=== PATIENT | female | born 1965 | race Caucasian/White ===

== ENCOUNTER → 2023-10-01 10:08 | Outpatient (REF) | payer OTHER, SELFPAY | LOC: RAD 10:08 | PROVIDERS: ATTENDING PHYSICIAN Internal Medicine | DX: E04.2 Nontoxic multinodular goiter (principal) | CPT/HCPCS: 76536 ==

== ENCOUNTER 2023-11-29 10:52 | Emergency (ER) | payer OTHER, SELFPAY ==
[2023-11-29] VITALS (7 sets, daily range): BP systolic 103–135; BP diastolic 73–81
[2023-11-29 11:21] LABS: ALT (SGPT) 28 U/L (0-35); AST (SGOT) 28 U/L (14-36); Alkaline Phosphatase 53 U/L (38-126); Blood Urea Nitrogen 18 mg/dl (7-17); Calcium 9.7 mg/dl (8.4-10.2); Carbon Dioxide 26 mmol/L (22-30); Chloride 105 mmol/L (98-107); Glucose 108 mg/dl (70-99); Potassium 4.1 mmol/L (3.5-5.1); Sodium 138 mmol/L (135-145); Total Bilirubin 0.8 mg/dl (0.2-1.3); Total Protein 6.6 g/dl (6.3-8.2); eGFR > 60.00
[2023-11-29 11:23] LABS: % Basophils 0.5 % (0-2); % Eosinophils 2.9 % (0-6); % Immature Granulocytes 0.2 % (0-0.5); % Lymphocytes 26.6 % (20.5-51.1); % Monocytes 7.5 % (1.7-9.3); % Neutrophils 62.3 % (42.2-75.2); Absolute Eosinophils 0.2 10^3/uL (0-0.7); Absolute Lymphocytes 1.7 10^3/uL (1.2-3.4); Absolute Monocytes 0.5 10^3/uL (0.1-0.6); Absolute Neutrophils 3.9 10^3/uL (1.4-6.5); Hematocrit 39.2 % (37.0-47.0); Hemoglobin 13.2 g/dL (12.0-16.0); Mean Corp Hgb Conc. 33.7 g/dL (33.0-37.0); Mean Corpuscular Hgb 30.4 pg (27.0-31.0); Mean Corpuscular Volume 90.3 fL (81.0-99.0); Mean Platelet Volume 10.8 fL (7.4-10.4); Nucleated Red Blood Cells % 0 %; Platelet Count 250 10^3/uL (130-400); Red Blood Cell Count 4.34 10^6/uL (4.20-5.40); Red Cell Dist. Width 12.8 % (11.5-14.5); White Blood Cell Count 6.2 10^3/uL (4.8-10.8)
[2023-11-29 11:32] LABS: Troponin I < 0.012 ng/ml
--- NOTE | 2023-11-29 12:14 | ED.GENMED ---
History of Present Illness
<NAOMI Pitt - Last Filed: 11/29/23 16:11>
General
Chief Complaint: Chest Pain
Source: patient
Exam Limitations: none
Time Seen by Provider: 11/29/23 11:01
Nursing documentation reviewed up to this point in time: agreed with
Travel History
Have you had any contact with someone who has COVID-19?: No
Do you have any symptoms of coronavirus? Fever > 100 degrees, chills, cough, shortness of breath, sore throat, loss of taste or smell, muscle aches, or headache?: No
History of Present Illness
History of Present Illness:
Patient is a 58-year-old female who presents for chest pain. Patient reports prior to arrival she was gardening and got up and walked inside and when she was about to go and develop pain across her chest right arm and right jaw. She did get sweaty
and nauseous. It lasted about 20 minutes. She took 3 baby aspirin at home and used 2 nitroglycerin. The first nitroglycerin did not help with a second did. The fire department however came and gave patient an additional 4 baby aspirin for total
of 7. She is currently asymptomatic. She does report she was seen by cardiology here [place] had a stress test last year which was normal.
This was reviewed stress echo was done September 12 2022 which was normal
Review of Systems
<NAOMI Pitt - Last Filed: 11/29/23 16:11>
Review of Systems
Allergies reviewed?: Yes
All Other Systems: ROS reviewed and negative except as documented in HPI and ROS
Constitutional: Reports no symptoms; Denies fever
Respiratory: Reports trouble breathing (SOB w/ episode now resolved )
Cardiac: Reports chest pain (Lasted 20 minutes now resolved)
ABD/GI: Reports no symptoms
Musculoskeletal: Reports no symptoms
Neurological: Reports no symptoms
Psychiatric: Reports no symptoms
Phy Exam
<NAOMI Pitt - Last Filed: 11/29/23 16:11>
General Physical Exam
General Presentation: no apparent distress
General age: appears stated age
General Skin: warm and dry
General Habitus: normal
General Mental: alert
General Hydration: appears well hydrated
Cardiovascular Exam
Cardiovascular Exam: no murmur and normal peripheral pulses
Pulmonary Exam
Pulmonary Exam: lungs clear and no respiratory distress
Neurological Exam
Neurological Exam: alert and oriented x3
Nafisa Coma Scale
Eye Opening: Spontaneous
Verbal Response: Oriented
Motor Response: Obeys Commands
GCS Total Score: 15
Musculoskeletal Exam
Musculoskeletal Exam: full ROM
Skin Exam
Skin Exam: normal color and warm/dry
Psychiatric Exam
Psychiatric Exam: normal mood/affect
<Nader Hook DO - Last Filed: 11/29/23 15:31>
Issue Coma Scale
GCS Total Score: 15
Scores
<NAOMI Pitt - Last Filed: 11/29/23 16:11>
Heart Score for Chest Pain Patients
STEMI patient?: Not applicable
Course
<NAOMI Pitt - Last Filed: 11/29/23 16:11>
Orders/Labs/Results
Orders:
Orders
11/29/23 10:54
Electrocardiogram (*1) Urgent
Reason for Study: Chest Pain
EKG- Treatment ONCE
11/29/23 11:00
Complete Blood Count/With Diff Urgent
Comprehensive Metabolic Panel Urgent
Troponin I Urgent
11/29/23 12:28
EKG- Treatment ONCE
11/29/23 14:00
Electrocardiogram (*1) Stat
Reason for Study: Other
Other Reason for Exam: chest pain
11/29/23 14:03
Troponin I Urgent
11/29/23 15:20
Chest [CR Chest - 2 Views ] Urgent
Comment:
Reason For Exam: cp
Abnormal Lab Results
11/29/23
11:00
MPV 10.8 H fL
(7.4-10.4)
BUN 18 H mg/dl
(7-17)
Glucose 108 H mg/dl
(70-99)
11/29/23 11:00
11/29/23 11:00
Vital Signs
Initial and Last Documented VS:
Initial Vital Signs
Temp Pulse Resp BP Pulse Ox
98.1 F 59 17 103/75 94
11/29/23 10:54 11/29/23 10:54 11/29/23 10:54 11/29/23 10:54 11/29/23 10:54
Last Documented Vital Signs
Temp Pulse Resp BP Pulse Ox
98.1 F 55 12 124/81 97
11/29/23 10:54 11/29/23 15:30 11/29/23 15:30 11/29/23 15:00 11/29/23 15:30
Nut Threader consulted with Physician
Nut Threader consulted with physician?: Yes
Name of Physician Consulted: Monster
<Nader Hook, DO - Last Filed: 11/29/23 15:31>
Orders/Labs/Results
Orders:
Orders
11/29/23 10:54
Electrocardiogram (*1) Urgent
Reason for Study: Chest Pain
EKG- Treatment ONCE
11/29/23 11:00
Complete Blood Count/With Diff Urgent
Comprehensive Metabolic Panel Urgent
Troponin I Urgent
11/29/23 12:28
EKG- Treatment ONCE
11/29/23 14:00
Electrocardiogram (*1) Stat
Reason for Study: Other
Other Reason for Exam: chest pain
11/29/23 14:03
Troponin I Urgent
11/29/23 15:20
Chest [CR Chest - 2 Views ] Urgent
Comment:
Reason For Exam: cp
Abnormal Lab Results
11/29/23
11:00
MPV 10.8 H fL
(7.4-10.4)
BUN 18 H mg/dl
(7-17)
Glucose 108 H mg/dl
(70-99)
11/29/23 11:00
11/29/23 11:00
Vital Signs
Initial and Last Documented VS:
Initial Vital Signs
Temp Pulse Resp BP Pulse Ox
98.1 F 59 17 103/75 94
11/29/23 10:54 11/29/23 10:54 11/29/23 10:54 11/29/23 10:54 11/29/23 10:54
Last Documented Vital Signs
Temp Pulse Resp BP Pulse Ox
98.1 F 55 12 124/81 97
11/29/23 10:54 11/29/23 15:30 11/29/23 15:30 11/29/23 15:00 11/29/23 15:30
<NAOMI Pitt - Last Filed: 11/29/23 16:11>
MDM/Problems Addressed
Differential Diagnosis Includes:
not limited to: ACS
MDM/Problems Addressed:
Patient is a 58-year-old female who presents to the ER for chest pain after gardening. Patient had nitroglycerin at home and took 1 without relief took a second 1 and also took aspirin. After taking everything symptoms resolved. She has had
intermittent pain off and on since she had a stress echo less than once a month. She has not seen cardiology recently. I did review echo from September 2022 which did show overall low risk stress test and no regional wall abnormality. It is noted
however that with stress EKG there is positive for ischemia with 0.[address] depression seen at peak exercise inferiorly and V4�6 but on immediate post echo images there is normal left ventricular function.
Patient has been asymptomatic here in the ER. Will check chest x-ray, she is nontachycardic nonhypoxic not short of breath no DVT PE risk factors. Case to ED physician will DC with cardiology hotline
Chronic conditions affecting care:
ex smoker
<NAOMI Pitt - Last Filed: 11/29/23 16:11>
*Radiology
Radiology exam reviewed: preliminary read by ED provider
*Pulse Oximetry
Patient hypoxic: no
*EKG
Interpreted by ED Provider?: Yes
Comparison EKG: no changes
Heart Rate: 53
Rate: bradycardiac
Rhythm: sinus
Ischemia: no ischemia
*Critical Care Note
Total Time (30-74mins, 75-104mins- exclusive of procedures): Not Applicable
ED Attending Note
<NAOMI Pitt - Last Filed: 11/29/23 16:11>
-
Portions of this chart may have been created with voice recognition software.� Occasional wrong word or��sound alike� substitutions may have occurred due to the inherent limitations of voice recognition software.
<Nader Hook DO - Last Filed: 11/29/23 15:31>
ED Attending Note
I performed the substantive portion of visit, reviewed & personally made and approve the management plan that is documented in note by myself or ELLYN.: Yes
Discharge Plan
Departure
Patient Disposition: Home (Routine Discharge)
Date of Disposition: 11/29/23
Time of Disposition: 16:10
Patient with high blood pressure during this ER visit?: No
Condition: Fair
Covid-19: Not Applicable
Discharge Problem:
Chest pain
Instructions: Chest Pain CBC Follow Up, BLOOD PRESSURE
Referrals:
Isaac Tracy MD [Active] -
Ana Rosa Redmond MD [Family Provider] -
Activity Restrictions/Additional Instructions:
Follow-up with your manager category. You were placed on the chest pain hotline which means you should receive a phone call from the office in the next 1 to 2 days however if you do not please give them a call to schedule an appointment.
In the meantime avoid strenuous exercise, and take 1 baby aspirin a day. Return if any worsening of symptoms
Interventions
Interventions:
*Risk Screen - Suicide Last Done: 11/29/23 10:54
*General Assessment Last Done: 11/29/23 10:54
*Neglect/Abuse Screening Last Done: 11/29/23 10:54
ED- Cardiac Assessment Last Done: 11/29/23 11:34
Discharge Date and Time
Print Language: [place]
[2023-11-29 14:34] LABS: Troponin I < 0.012 ng/ml
== END 2023-11-29 16:56 | disposition home or self-care (01) ==
LOC: EMR 10:52
PROVIDERS: Emergency Medicine; Nurse Practitioner; EMERGENCY PHYSICIAN Emergency Medicine; FAMILY PHYSICIAN Internal Medicine
DX: R07.89 Other chest pain (principal)
CPT/HCPCS: 99284; 71046; 80053; 84484; 85025; 93005

== ENCOUNTER → 2023-12-27 10:28 | Outpatient (REF) | payer OTHER, SELFPAY | LOC: HWRCS 10:28 | PROVIDERS: ATTENDING PHYSICIAN Nurse Practitioner; FAMILY PHYSICIAN Internal Medicine | DX: R07.89 Other chest pain (principal) | CPT/HCPCS: 93306 ==

== ENCOUNTER 2025-06-20 20:05 | Emergency (ER) | payer OTHER, SELFPAY ==
[2025-06-20 20:10] VITALS: BP 144/80
--- NOTE | 2025-06-20 21:13 | ED.GENMED ---
History of Present Illness
General
Chief Complaint: Extremity Pain (non-traumatic)
Source: patient
Exam Limitations: none
Time Seen by Provider: 06/20/25 20:48
History of Present Illness
History of Present Illness:
60yoF with a history of hypertension presenting for evaluation of left leg pain. Symptoms began about 1 week ago. She reports pain in her left posterior thigh. No trauma or inciting incident. Pain is now present with ambulation and worsens with
sitting. She has been taking ibuprofen with some relief. Her [id number] has a history of a DVT and encouraged her to come to the ED for evaluation. She is otherwise asymptomatic and denies any chest pain, shortness of breath, or back pain.
No recent travel.
Phy Exam
General Physical Exam
General Presentation: well appearing and no apparent distress
General Skin: warm and dry
General Habitus: normal
General Mental: alert
ENT Exam
ENT Exam: normocephalic
Cardiovascular Exam
Cardiovascular Exam: no edema and normal peripheral pulses (2+ DP pulses bilaterally)
Pulmonary Exam
Pulmonary Exam: no respiratory distress
Neurological Exam
Neurological Exam: alert
Nafisa Coma Scale
Eye Opening: Spontaneous
Verbal Response: Oriented
Motor Response: Obeys Commands
GCS Total Score: 15
Musculoskeletal Exam
Musculoskeletal Exam: other (No skin changes or pitting edema to L leg. No tenderness to palpation. 2+ DP pulse.)
Skin Exam
Skin Exam: normal color and warm/dry
Psychiatric Exam
Psychiatric Exam: normal mood/affect
Course
Orders/Labs/Results
Orders:
Orders
06/20/25 21:12
Venous Doppler Lwr Ext Left [US Periph Venous LOWER Ext LT] Urgent
Comment:
Reason For Exam: atraumatic L posterior thigh pain
Vital Signs
Initial and Last Documented VS:
Initial Vital Signs
Temp Pulse Resp BP Pulse Ox
97.8 F 70 20 144/80 100
06/20/25 20:10 06/20/25 20:10 06/20/25 20:10 06/20/25 20:10 06/20/25 20:10
Last Documented Vital Signs
Temp Pulse Resp BP Pulse Ox
97.8 F 60 17 134/81 97
06/20/25 20:10 06/20/25 23:00 06/20/25 23:00 06/20/25 23:00 06/20/25 23:00
MDM/Problems Addressed
Differential Diagnosis Includes:
60yoF here with atraumatic L posterior thigh pain x 1 week. Worried about a DVT. No skin changes or pitting edema on exam. LLE is neurovascularly intact. Differential diagnosis includes: DVT, Jimenez's cyst, muscular strain, sciatica
Venous duplex obtained which is negative for DVT. Patient stable for discharge. Supportive care discussed. Patient scheduled to see her PCP later this week.
*Pulse Oximetry
SaO2: 100
Patient hypoxic: no
*Critical Care Note
Total Time (30-74mins, 75-104mins- exclusive of procedures): Not Applicable
ED Attending Note
-
Portions of this chart may have been created with voice recognition software.� Occasional wrong word or��sound alike� substitutions may have occurred due to the inherent limitations of voice recognition software.
Discharge Plan
Departure
Patient Disposition: Home (Routine Discharge)
Date of Disposition: 06/20/25
Time of Disposition: 22:49
Patient with high blood pressure during this ER visit?: Yes
Discharge Problem:
Pain in posterior left lower extremity
Instructions: Muscle and Bone Pain (DC)
Referrals:
Ana Rosa Redmond MD [Family Provider, Internal Medicine]
Activity Restrictions/Additional Instructions:
The ultrasound today was negative for a blood clot.
You may take Tylenol and ibuprofen as needed for pain.
Please follow-up with your family doctor this week as previously scheduled. Return to the ER with any new or worsening symptoms.
Interventions
Interventions:
*Risk Screen - Suicide Last Done: 06/20/25 20:10
*General Assessment Last Done: 06/20/25 22:39
*Neglect/Abuse Screening Last Done: 06/20/25 20:10
*ED COVID-19 Vaccine History Last Done: 06/20/25 22:39
*ED Influenza Vaccine History Last Done: 06/20/25 22:39
*Nursing Disposition Last Done: 06/20/25 22:50
ED-Musculoskeletal Assessment Last Done: 06/20/25 22:39
ED-Peripheral Vascular Assessment Last Done: 06/20/25 22:39
ED-Skin Assessment Last Done: 06/20/25 22:40
Discharge Date and Time
Discharge Date/Time: 06/20/25 23:01
Print Language: [place]
[2025-06-20 23:00] VITALS: BP 134/81
== END 2025-06-20 23:01 | disposition home or self-care (01) ==
LOC: EMR 20:05
PROVIDERS: EMERGENCY PHYSICIAN Student in an Organized Health Care Education/Training Program; FAMILY PHYSICIAN Internal Medicine
DX: M79.652 Pain in left thigh (principal); I10 Essential (primary) hypertension; Z86.718 Personal history of other venous thrombosis and embolism
CPT/HCPCS: 99284; 93971